=== PATIENT | male | born 1965 | race Caucasian/White ===

== ENCOUNTER 2019-12-27 13:00 | Observation (INO) ==
[2019-12-27] MEDS ORDERED: Isovue-370 500 ML BOTTLE IVP ONE (13:09)
[2019-12-27 13:33] LABS: Basophils % 0.5 %; Eosinophils # 0.2 K/mcL (0.0-0.6); Eosinophils % 2.8 %; Hematocrit 43.1 % (37.5-50.1); Hemoglobin 14.7 g/dL (12.9-16.9); Immature Granulocytes % 0.3 % (0-4); Lymphocytes # 1.9 K/mcL (0.6-4.6); Lymphocytes % 25.5 %; Mean Corpuscular HGB Conc 34.1 g/dL (31.6-35.5); Mean Corpuscular Hemoglobin 29.8 pg (28.0-33.3); Mean Corpuscular Volume 87.2 fL (83.0-100.0); Mean Platelet Volume 9.2 fL (9.4-12.4); Monocytes # 0.8 K/mcL (0.0-1.3); Monocytes % 10.9 %; Neutrophils # 4.5 K/mcL (1.6-8.9); Platelet Count 297 K/mcL (140-400); Red Blood Count 4.94 M/mcL (4.19-5.50); Red Cell Distribution Width 13.2 % (11.5-14.5); White Blood Count 7.4 K/mcL (4.3-11.1)
[2019-12-27 13:52] LABS: BUN/Creatinine Ratio 18 (6-26); Blood Urea Nitrogen 21 mg/dL (6-20); Calcium 9.6 mg/dL (8.6-10.3); Carbon Dioxide 25 mEq/L (23-29); Chloride 103 mEq/L (98-107); Glucose 96 mg/dL (70-105); Osmolality,Calculated 291 (280-300); Potassium 3.9 mEq/L (3.5-5.1); Sodium 139 mEq/L (136-145); eGFR For African Americans > 60 (> 60); eGFR For Non-African Americans > 60 (> 60)
[2019-12-27 13:53] LABS: Troponin I < 0.03 ng/mL (< 0.04)
[2019-12-27] MEDS ORDERED: Naloxone 0.4 MG/ML INJ IVP PRN (16:15)
[2019-12-27] MEDS: 0.9 % Sodium Chloride 1,000 ML IVC SCH (16:56)
[2019-12-27] MEDS ORDERED: *HR* Heparin 5,000 UNIT/ML VIAL IVP ONE (18:31)
[2019-12-27] MEDS ORDERED: *HR* Heparin 5,000 UNIT/ML VIAL IVP PRN (18:31)
[2019-12-27 18:55] LABS: Hematocrit 43.9 % (37.5-50.1); Mean Corpuscular HGB Conc 34.2 g/dL (31.6-35.5); Mean Corpuscular Hemoglobin 29.9 pg (28.0-33.3); Mean Corpuscular Volume 87.5 fL (83.0-100.0); Mean Platelet Volume 9.1 fL (9.4-12.4); Platelet Count 290 K/mcL (140-400); Red Blood Count 5.02 M/mcL (4.19-5.50); Red Cell Distribution Width 13.4 % (11.5-14.5); White Blood Count 7.8 K/mcL (4.3-11.1)
[2019-12-27 19:02] LABS: Heparin anti-factor XA UFH < 0.04 IU/mL (0.30-0.70)
[2019-12-27 19:03] LABS: Prothrombin Time 11.8 Seconds (9.4-12.1)
[2019-12-27] MEDS: lisinopriL 20 MG TABLET PO SCH (20:17)
[2019-12-27] MEDS: Heparin 25,000 UNIT/250 ML D5W 25,000 UNIT/250 ML IV.SOLN IVC SCH (20:18)
[2019-12-27] MEDS ORDERED: *HR* Heparin 5,000 UNIT/ML VIAL SQ SCH (22:00)
[2019-12-28] MEDS ORDERED: *HR* Heparin 5,000 UNIT/ML VIAL IVP PRN (04:28)
[2019-12-28] MEDS ORDERED: Perflutren Lipid Microsphere 1.3 ML in 0.9 % Sodium Chloride 8.7 ML IVP ONE (07:03)
[2019-12-28] MEDS: 0.9 % Sodium Chloride 1,000 ML IVC SCH ×2 (07:09→20:13)
[2019-12-28] MEDS ORDERED: Aspirin Enteric Coated 81 MG Tablet PO SCH ×2 (09:00→21:00)
[2019-12-28] MEDS ORDERED: Nitroglycerin 0.4 MG TAB.SUBL SL PRN (12:56)
[2019-12-28] MEDS: Heparin 25,000 UNIT/250 ML D5W 25,000 UNIT/250 ML IV.SOLN IVC SCH (15:18)
[2019-12-28] MEDS: lisinopriL 20 MG TABLET PO SCH (20:23)
[2019-12-28] MEDS ORDERED: lisinopriL 20 MG TABLET PO SCH (21:00)
[2019-12-29 05:24] LABS: Basophils # 0.1 K/mcL (0.0-0.2); Basophils % 0.9 %; Eosinophils # 0.3 K/mcL (0.0-0.6); Eosinophils % 3.9 %; Hematocrit 40.4 % (37.5-50.1); Hemoglobin 13.5 g/dL (12.9-16.9); Immature Granulocytes % 0.3 % (0-4); Lymphocytes % 31.1 %; Mean Corpuscular HGB Conc 33.4 g/dL (31.6-35.5); Mean Corpuscular Hemoglobin 30.2 pg (28.0-33.3); Mean Corpuscular Volume 90.4 fL (83.0-100.0); Mean Platelet Volume 9.5 fL (9.4-12.4); Monocytes # 0.7 K/mcL (0.0-1.3); Monocytes % 11.1 %; Neutrophils # 3.4 K/mcL (1.6-8.9); Platelet Count 265 K/mcL (140-400); Red Blood Count 4.47 M/mcL (4.19-5.50); Red Cell Distribution Width 13.4 % (11.5-14.5); Segmented Neutrophils % 52.7 %; White Blood Count 6.5 K/mcL (4.3-11.1)
[2019-12-29 05:26] LABS: Prothrombin Time 11.9 Seconds (9.4-12.1)
[2019-12-29 05:42] LABS: Alanine Aminotransferase 24 Units/L (7-52); Albumin 3.8 g/dL (3.5-5.7); Albumin/Globulin Ratio 1.4 (1.1-2.2); Alkaline Phosphatase 83 Units/L (34-104); Aspartate Amino Transferase 18 Units/L (13-39); BUN/Creatinine Ratio 17 (6-26); Bilirubin,Total 0.4 mg/dL (0.3-1.0); Blood Urea Nitrogen 17 mg/dL (6-20); Calcium 8.9 mg/dL (8.6-10.3); Carbon Dioxide 24 mEq/L (23-29); Chloride 107 mEq/L (98-107); Globulin 2.7 g/dL (2.4-3.5); Glucose 105 mg/dL (70-105); Osmolality,Calculated 288 (280-300); Potassium 3.8 mEq/L (3.5-5.1); Sodium 138 mEq/L (136-145); Total Protein 6.5 g/dL (6.4-8.9); eGFR For African Americans > 60 (> 60); eGFR For Non-African Americans > 60 (> 60)
[2019-12-29] MEDS: Heparin 25,000 UNIT/250 ML D5W 25,000 UNIT/250 ML IV.SOLN IVC SCH (06:05)
[2019-12-29] MEDS ORDERED: Nitroglycerin 1,000 MCG/10 ML VIAL IV ONE (10:31)
[2019-12-29] MEDS ORDERED: 0.9 % Sodium Chloride 2,000 ML ONE (10:31)
[2019-12-29] MEDS ORDERED: *HR* Heparin 10,000 UNIT/10 ML VIAL ONE (10:31)
[2019-12-29] MEDS ORDERED: Heparin 1,000 UNITS/500 mL 500 ML ONE (10:31)
[2019-12-29] MEDS ORDERED: ISOVUE-370 200 ML INFUS..BTL ONE (10:31)
[2019-12-29] MEDS ORDERED: *HR* Midazolam HCl 5 MG/5 ML VIAL IVP ONE (10:55)
[2019-12-29] MEDS ORDERED: *HR* FentaNYL (PF) 100 MCG/2 ML VIAL ONE (10:56)
[2019-12-29] MEDS: 0.9 % Sodium Chloride 1,000 ML IVC SCH (12:09)
[2019-12-29 13:00] VITALS: BP 138/86
[2019-12-30] MEDS ORDERED: Furosemide 40 MG TABLET PO SCH (09:00)
== END 2019-12-29 15:21 | disposition home or self-care (01) ==
LOC: 3BNU 13:00 → EMEROOARM 13:00 → SUATTDRO 16:36 → 3BNU 17:18
PROVIDERS: ADMIT Internal Medicine; ATTEND Internal Medicine